=== PATIENT | female | born 1995 | race Caucasian/White ===

== ENCOUNTER 2023-05-02 10:23 | Emergency (ER) | payer OTHER, SELFPAY ==
[2023-05-02 10:46] VITALS: BP 120/80; PULSE 104; RESP 16; TEMP 36.6; O2SAT 99
--- NOTE | 2023-05-02 10:56 | ED.URI ---
HPI - URI/Sore Throat General Chief Complaint: Upper Respiratory Infection Stated Complaint: Congestion;Nausea Time Seen by Provider: 05/02/23 10:56 Source: patient and RN notes reviewed Mode of arrival: ambulatory Limitations: no limitations History of Present Illness HPI Narrative: 27 year female presenting for complaint of nasal congestion, sore throat, cough and vomiting for about 5 days. States the sore throat felt like swallowing glass but is improving. Continues to feel congested. Denies shortness of breath, wheezing, fevers or lethargy. 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 Taking Mucinex, Benadryl and Tylenol/ibuprofen. Tested negative for covid x2 since onset. MD elicited complaint: cough Related Data Home Medications Medication Instructions Recorded Confirmed No Home Medications 05/02/23 05/02/23 Allergies Allergy/AdvReac Type Severity Reaction Status Date / Time No Known Allergies Allergy Unverified 05/27/14 13:21 Review of Systems Review of Systems: CONSTITUTIONAL: Endorses malaise, Denies chills, sweats, fever EYES: Denies visual changes, redness, or discharge ENT: Reports rhinorrhea, congestion, sore throat CARDIOVASCULAR: Denies chest pain, palpitations, edema RESPIRATORY: Reports cough, post nasal drainage. Denies dyspnea GASTROINTESTINAL: Reports nausea, vomiting, Denies abdominal pain, diarrhea SKIN: Denies rash or itching MUSCULOSKELETAL: Endorses myalgia NEUROLOGIC: Denies headache PMF Past Medical History Medical History (Updated 05/02/23 @ 11:17 by Joann Krishnan, [employer]) No pertinent past medical history Exam Narrative: GENERAL: Ill-appearing, nontoxic no acute distress. HEAD: Normocephalic EYES: PERRLA, conjunctivae clear ENT: Mucous membranes moist. TMs pearly torres with dull light reflex bilaterally; no tragal tenderness. Oropharynx erythematous without lesions or exudate, tonsils 1+ no drooling, no hoarseness, no trismus, uvula midline. No tripod positioning, muffled voice, soft palate or pharyngeal wall bulging NECK: Supple. No lymphadenopathy CHEST: Clear to auscultation, breath sounds equal. No wheezing, rhonchi, rales, or stridor. No respiratory distress, speaks in full sentences. HEART: Regular rate and rhythm. No murmur heard. SKIN: Warm, dry, no rash. NEURO: Alert and oriented x3. PSYCH: Normal mood and affect Course Course Emergency Course: Patient is aware of diagnosis, understands and agrees to treatment plan. Anticipatory guidance given. Patient agrees to follow-up as directed and is aware of reasons to seek care at the emergency department. Portions of this record may have been created with voice recognition software Level of Care: Express Care Visit Vital Signs Vital signs: Vital Signs Temperature 98 F 05/02/23 10:46 Pulse Rate 104 H 05/02/23 10:46 Respiratory Rate 16 05/02/23 10:46 Blood Pressure 120/80 05/02/23 10:46 Pulse Oximetry 99 05/02/23 10:46 Temperature 98 F 05/02/23 10:46 Pulse Rate 104 H 05/02/23 10:46 Respiratory Rate 16 05/02/23 10:46 Blood Pressure 120/80 05/02/23 10:46 Pulse Oximetry 99 05/02/23 10:46 reviewed MDM - URI/Sore Throat MDM Narrative Medical decision making narrative: Negative covid Negative strep Discussed physical exam findings. Advised supportive measures and signs/symptoms to go to the ER. Pt is appropriate for outpt treatment and f/u. Differential Diagnosis Differential diagnosis: Likely upper respiratory infection, sinusitis and viral infection Lab Data Labs: Strep Screen Presumptive Negative *(Reference Range: Negative)* Discharge Plan Discharge Clinical Impression: Viral infection Patient Disposition: Home, Self-Care Condition: Stable Instructions: Viral Syndrome (ED) Additional Instructions: COVID negative Rapid strep swab was negative tod
== END 2023-05-02 11:28 | disposition home or self-care (01) ==
PROVIDERS: Emergency Provider Nurse Practitioner Family; PCP Registered Nurse
DX: B34.9 Viral infection, unspecified (principal); Z20.822 Contact with and (suspected) exposure to COVID-19
CPT/HCPCS: 87081; 87426; 87880; 99213; C9803; G0463

== ENCOUNTER 2024-11-25 07:29 | Outpatient (CLI) | payer OTHER, SELFPAY ==
--- NOTE | ~2024-11-25 | XR_ITS ---
AP and lateral views of the bilateral hips Clinical history: Pain Findings: No acute fracture or dislocation is seen. Osseous alignment is anatomic. Bilateral hip and SI joint spaces are preserved. Soft tissues are unremarkable. IUD in place. Impression: No significant abnormality is seen. Reviewed, dictated and finalized at [facility]. Impression: No significant abnormality is seen.
== END 2024-11-25 07:30 | disposition home or self-care (01) ==
LOC: MICIMG 07:34
PROVIDERS: PCP Physician Assistant; Visit Provider Physician Assistant
DX: M25.552 Pain in left hip (principal); M25.551 Pain in right hip
CPT/HCPCS: 73521

== ENCOUNTER 2024-12-24 07:02 | Outpatient (CLI) | payer OTHER, SELFPAY ==
--- NOTE | ~2024-12-24 | US_ITS ---
US soft tissue UE LT 12/24/2024 07:56 Indication: Bump left hand. Possible ganglion cyst. Procedure: High-resolution Limited ultrasound of the left hand/dorsal wrist Comparison: No prior studies for comparison. Findings: Normal heterogeneous soft tissues without focal solid or cystic mass. Normal vascularity. Impression: 1: No soft tissue mass identified. Reviewed, dictated and finalized at location B. Impression: 1: No soft tissue mass identified.
--- OUTSIDE RECORDS SUMMARY | 2024-12-24 07:10 | XMS_ITS | Clinical Summary ---
Author Organization [facility] Address [address] [place] [address] Care Team Providers Care Hide Selector Name Role Phone Unavailable Primary Care Provider Unavailabl e Source Comments [facility],non-owned Affiliates and Associated Physician Practices is amultiple site organization consisting of ambulatory clinics and hospital sitesin [place], [place], [place] and [place]. This disclosure is being madepursuant to the Care Everywhere program and may not contain all information available regarding this patient. Last updated [email or web address] Allergies No known active allergies Medications * Be aware that medications may not be up to date on this document. Alwaysverify current medications with the patient. No known medications Family History Medical History Relation Name Comments Hypertension Father Relation Name Status Comments Father Alive Mother Alive Social History Tobacco Use Types Packs/Day Years Used Date Smoking Tobacco: Never Smokeless Tobacco: Never Comments No Sex and Gender Information Value Date Recorded Sex Assigned at Not on file Legal Sex Female 2:05 PM CDT Gender Identity Not on file Sexual Orientation Not on file Last Filed Vital Signs Vital Sign Reading Time Taken Comments Blood Pressure 102/56 01/06/2018 2:11 PM CDT Pulse 68 01/06/2018 2:11 PM CDT Temperature 36.8 C (98.2 F) 01/06/2018 2:11 PM CDT Respiratory Rate 16 01/06/2018 2:11 PM CDT Oxygen Saturation 98% 01/06/2018 2:11 PM CDT Inhaled Oxygen Concentration - - Weight 58.5 kg (129 lb) 01/06/2018 2:11 PM CDT Height 172.7 cm (5' 8) 01/06/2018 2:11 PM CDT Body Mass Index 19.61 01/06/2018 2:11 PM CDT Plan of Treatment Health Maintenance Due Date Last Done Comments HIV SCREENING 2011 HEPATITIS C SCREENING 04/29/2014 DTAP/TDAP/TD VACCINES (1 - Tdap) 2015 HEPATITIS B VACCINE (1 of 3 - 19+ 3-dose series) 2015 COVID-19 VACCINE (1 - 2023-2 5 season) 2024 DEPRESSION SCREENING 07/14/2024 INFLUENZA VACCINE (Season Ended) 2025 ZOSTER VACCINE (1 of 2) 2046 HIB VACCINE Aged Out No longer eligi ble based on patient's age to complete this topic HPV VACCINE Aged Out No longer eligi ble based on patient's age to complete this topic MENINGOCOCCAL (Group B) VACC INE SHARED DECISION-MAKING Aged Out No longer eligibl e based on patient's age to complete this topic MENINGOCOCCAL GROUPS A/C/Y/W VACCINE Aged Out No longer eligible b ased on patient's age to complete this topic PNEUMOCOCCAL VACCINE Aged Out No long er eligible based on patient's age to complete this topic
--- OUTSIDE RECORDS SUMMARY | 2024-12-24 07:10 | XMS_ITS | Data Portability ---
Author Organization [employer] , [facility] Address [address] [place] [address] Assessment No assessment recorded. Plan of Treatment Reminders Order Date Submit Date Provider Last Modified By Organization Details Last Modified Time Details Appointments None recorded. Lab test, urine 2023 024 [email or web address] [facility], [address] [place], [address], 4 13:22:41 pap, LB 2023 024 [facility], [address] [place], [address], 4 17:34:02 unlisted lab - Pap reflex hold plus CT/GC/trich 2023 024 [facility], [address] [place], [address], 4 23:02:38 Referral pelvic floor therapy referral 2023 024 [email or web address] [facility], [address], [place], [address], 4 13:32:28 Procedures insertion, intrauterin e device (PROC) 2023 024 [email or web address] Not available 4 17:55:42 Surgeries None recorded. Imaging US, transvagina l 2024 025 [email or web address] Not available 5 18:51:54 US, pelvis, limited/fol low-up 2024 025 FAM Not available 5 06:30:29 US, pelvis, limited/fol low-up 2023 024 FAM Not available 4 17:53:59 Medication Orders Mirena 21 mcg/24 hr (up to 8 years) 52 mg intrauterin e device 2023 024 [id number], [address], [place], [place], [id number], 13:22:41 Patient TargetsNo targets recorded. Patient Instructions Encounter Date Encounter Id Patient Instructions Last Modified By Organization Details Last Modified Time 06/03/2024 [id number] A healthy lifestyle: care instructions [email or web address] Not available 06/03/2024 11:57:59 Following the [employer] Food Guide: Care Instructions [email or web address] Not available 06/03/2024 11:58:00 exercise program : getting started [email or web address] Not available 06/03/2024 11:58:00 contraception information [email or web address] Not available 06/03/2024 11:58:00 06/24/2024 [id number] intrauterine device (IUD) insertion: care instructions [email or web address] Not available 06/24/2024 13:22:41 Reason for Referral Pelvic Floor Therapy Referra l for Pain in female genitalia on intercourse Referring Physician: Sue Hsieh, [employer], Encounter Date: 06/03/2024 Results Created Date Observation Date Name Description Value Unit Range Abnormal Flag Note LastModifiedBy Organization Detail LastModifiedTime 06/03/2006/08/2024 THINP REP TIS PAP clinical information: normal None given Not Available [facility] [address] [place], [address], 06/08/2024 17:34:02 06/03/2006/08/2024 THINP REP TIS PAP LMP: normal None given Not Available [facility] [address] [place] [address], [address], 06/08/2024 17:34:02 06/03/20 24 06/08/2024 THINP REP TIS PAP prev. Pap: normal None given Not Available [address], [address], 06/08/2024 17:34:02 06/03/20 24 06/08/2024 THINP REP TIS PAP prev. BX: normal None given Not Available [address], [address], 06/08/2024 17:34:02 06/03/2006/08/2024 THINP REP TIS PAP source: normal Cervi x Not Available [address], [address], 06/08/2024 17:34:02 06/03/2006/08/2024 THINP REP TIS PAP statement of adequacy: normal Satis facto ry for evalu ation . Endoc ervic al/tr ansfo rmati on zone compo nent prese nt. Age and/o r menst rual statu s not provi ded Not Available [address], [address], 06/08/2024 17:34:02 06/03/20 24 06/08/2024 THINP REP TIS PAP interpretati on/result: normal Cytol ogy Resul ts: Negat funmi for intra epith elial lesio n or jose eduardo stevens . Not Available [address] [place], [address], 06/08/2024 17:34:02 06/03/2006/08/2024 THINP REP TIS PAP comment: normal This Pap test has been evalu ated with compu ter krystyna piter techn ology . Not Available [address], [address], 06/08/2024 17:34:02 06/03/20 24 06/08/2024 THINP REP TIS PAP cytotechnolo gist: normal KMS, CT( CP) CT Scree momo locat ion: [facility] [address] [place] [address] Not Available [facility] [address], [place], [address], 06/08/2024 17:34:02 06/03/20 24 06/08/2024 THINP REP TIS PAP comment EXPLA NATOR Y NOTE: The Pap is a scree momo test for cervi richar cance r. It is not a diagn ostic test and is subje ct to false negat funmi and false posit funmi resul ts. It is most relia ble when a satis facto ry sampl e, regul rodriguez obtai jayna, is submi tted with relev ant clini richar findi ngs and histo ry, and when the Pap resul t is evalu ated along with histo martin and curre nt clini richar infor matio n. Not Available [facility] [address], [place], [address], 06/08/2024 17:34:02 06/03/20 24 06/09/2024 CT/GC /TRIC H + HOLD trichomonas vaginalis TRICH neg negati ve normal Not Available [address], [address], 06/09/2024 23:02:38 06/03/20 24 06/09/2024 CT/GC /TRIC H + HOLD chlamydia trachomatis CT neg negati ve normal This repor t is inten ded for us in clini richar monit oring and manag ement of patie nts. It is not inten ded for use in medic al-le gal appli catio n. Not Available [facility] [address] [place], [address], 06/09/2024 23:02:38 06/03/20 24 06/09/2024 CT/GC /TRIC H + HOLD neisseria gonorrhoeae GC neg negati ve normal This repor t is inten ded for us in clini richar monit oring and manag ement of bridgett springer. It is not inten ded for use in medic al-le gal appli catio n. Not Available [facility] [address] [place], [address], 06/09/2024 23:02:38 06/24/20 24 06/24/2024 pregn evita test, urine HCG negati ve Not Available [facility] [address] [facility], [place], [address], 06/24/2024 12:35:33 06/24/20 24 06/24/2024 US, pelvi s, limit ed/fo llow- up No observ ation record ed. [email or web address] [address], [place], [address], 06/28/2024 13:14:16 08/12/19 25 08/10/2024 US, pelvi s, limit ed/fo llow- up No observ ation record ed. [email or web address] [address], [place], [address], 08/12/2024 10:08:51 Result Notes None recorded. Procedures Surgical History Date Name Laterality Status Provider Name and Address Organization Details Recorded Time 06/24/20 24 [facility]ion [facility] [place], [address], [employer] [facility] 06/24/2024 13:22:20 06/24/20 24 insertion of intrauterine contraceptive device completed Ashanti Rocha [facility] [employer] [facility] IV 06/24/2024 12:55:05 06/03/20 24 Date of Last Pap Smear completed MARISELA JACKSON [address] [place], [address], [employer] [facility] IV 06/03/2024 11:56:40 Imaging Results None recorded. Procedure Notes None recorded. Medical Equipment None Reported. Allergies No known drug allergies Medications Name Sig Start Date Stop Date Status Note LastModified by Organization Details LastModified Time Mirena 21 mcg/24 hr (up to 8 years) 52 mg intrauter ine device Take by intraute rine route. 2023 active Document procedur e details in the PE - Procedur e SectionD ocument Lot # Exp Date and click Administ ered in this A/P order Not Available Not Available Not Available omeprazol e 20 mg capsule,d elayed release 06/03 completed Not Available Not Available Not Available Vitals Date Recorded Body height Body mass index (BMI) Body weight Systolic blood pressure Diastolic blood pressure Provider Name and Address Organization Details Last Updated DateTime 08/10/2024 172.72 cm 25.2 kg/m2 57888.33 g 106 mm[Hg] 70 mm[Hg] Nyasia Vaz [employer] [facility] 5 09:52:20 Date Recorded Body weight Body mass index (BMI) Body height Systolic blood pressure Diastolic blood pressure Provider Name and Address Organization Details Last Updated DateTime 06/03/2024 66114.32 g 26.2 kg/m2 172.72 cm 118 mm[Hg] 66 mm[Hg] Karin Stone [employer] [facility] 4 10:45:18 Date Recorded Body height Body mass index (BMI) Body weight Body temperature Systolic blood pressure Diastolic blood pressure Provider Name and Address Organization Details Last Updated DateTime 172.72 cm 26 kg/m2 53223.3 g 96.1 [degF] 118 mm[Hg] 72 mm[Hg] Ashanti Rocha [employer] [facility] 4 12:43:31 Social History Question Answer Notes LastModified by Organizat ion Details LastModified Time Tobacco Smoking Status Never Smoker Karin Stone [facility], [employer] [facility] 06/03/2024 10:42:07 If You Are , What Was Your Level Of Alcohol Consumption Prior To ? None Information not available 06/03/2024 How Many Years Have You Consumed Alcohol? 7 [email or web address] Information not available 06/03/2024 Are You Blind Or Do You Have Difficulty Seeing? No [email or web address] Information not available 06/03/2024 Are You Deaf Or Do You Have Serious Difficulty Hearing? No [email or web address] Information not available 06/03/2024 What Type Of Diet Are You Following? REGULAR [email or web address] Information not available 06/03/2024 How Many Children Do You Have? 0 [email or web address] Information not available 06/03/2024 Are There Any Occupational Health Risks Where You Work? Work In [employer] [email or web address] Information not available 06/03/2024 What Is Your Relationship Status? Single [email or web address] Information not available 06/03/2024 Are You Sexually Active? Yes [email or web address] Information not available 06/03/2024 Sex: Unknown Functional Status Question Answer Note LastModified by Organizat ion Details LastModified Time Do you use any illicit or recreational drugs? No Information not available 06/03/2024 What is your level of alcohol consumption? Occasional [email or web address] Information not available 06/03/2024 Are you currently employed? Yes [email or web address] Information not available 06/03/2024 What is your exercise level? Occasional Information not available 06/03/2024 Mental Status None recorded. Family History Relationship Description Onset Age of this Age Resolved Age Notes LastModified by Organization Details LastModified Time Maternal Grandmother Hypertensive disorder Not available 2023 10:42:06 Maternal Grandmother Diabetes mellitus [email or web address] Not available 2023 10:42:06 Medical History Condition Response Other Cancer N High Blood Pressure N Colon Cancer N Cytomegalovirus N Hyperthyroidism N Herpes (HSV) N Breast Cancer N Blood Transfusion N MRSA N Lung Cancer N Hypothyroidism N Depression N Incontinence N Panic Attacks N Neurological Disorder N Deep Vein Thrombosis N Anxiety Disorder N Autoimmune disease N Arthritis N Tuberculosis/Positive PPD N Shingles N Polycystic Ovarian Syndrome N Infertility N Cervical Cancer N Hematuria N Chlamydia N Varicosities N Stroke N Crohn's Disease N Seasonal allergies N Alzheimer's/Dementia N COPD/Emphysema N HPV/Genital Warts N Endometriosis N IBS (Irritable Bowel Syndrome) N History of Abnormal Pap N High Cholesterol N Liver Disease N Kidney Infection N Fibromyalgia N Ulcer N Kidney Disease N HIV N Gallbladder disease N Sickle Cell Disease/Trait N Von Willebrand disease N ADD/ADHD N Eating Disorder N Diabetes Mellitus (non-insulin dependent ) N Anemia N Ovarian Problems N Multiple Sclerosis N Gonorrhea N Frequent Urinary Tract infections N Osteopenia N Headaches/migraines N GERD (reflux) N Ovarian Cancer N Diabetes (insulin dependent) N Seizures/Epilepsy N Breast Problems N Fibroids N Asthma N Heart Attack N Lupus N Endometrial Cancer N Rubella N Blood Clotting Disorder N Bipolar Disorder N Diabetes Mellitus (during ) N Ulcerative Colitis N Hepatitis N Heart Disease N Pulmonary Embolism N RPR N Chicken Pox N Osteoporosis N Gynecological History Statement/Question Response Date of Last Colonoscopy Flow Moderate Frequency of Cycle (Q days) 30 Date of LMP 07/22/2024 Most Recent Bone Density Date of Last Pap Smear 06/03/2024 Duration of Flow (days) 6 Most Recent Mammogram Current Control Method None Age at Menarche 15 Obstetrics History GPAL:G 0 P 0 0 0 0 Past Encounters Encounter ID Performer Location Encounter Start Date Encounter Closed Date Diagnosis/Indication Diagnosis SNOMED-CT Code Diagnosis ICD10 Code Diagnosis Note [id number] [facility] [address] [place] [address] 06/03/2024 10:36:23 06/03/2024 12:46:39 Gynecologic examination 61831850 Z01.419 Patient is new to our Practice. She presents today for a gynecologi richar Annual Exam. Patients Past Medical History and Family History reviewed. Annual Exam:She reports having painful intercours e. Reports adequate foreplay. States they have introduced lubricatio n. Reports stabbing/s cratching pain.Her menses are regular, occurring every 1 month(s). Menses lasts for 6 days. Reports they are not heavy or painful. Denies spotting in between.Pt is currently using nothing for contracept ion. She would like Mirena IUD, RTC for placement. Pap History:Kota cornelius is due for a pap smear. Breast History:Kota cornelius denies breast symptoms. Education on Breast Self Awareness given. Patient is regularly seen by PCP for preventati ve care: Yes Screening for malignant neoplasm of cervix 271325225 Z12.4 Contracept ion education 917276870 Z30.09 Contracept funmi counseling : Discussed options including OCPs, NuvaRing, Nexplanon, hormonal and copper IUDs. Discussed risks, efficacy, noncontrac eptive benefits, and side effects of each option, including risk of VTE with hormonal contracept ion and uterine perforatio n, expulsion, infection with IUD. Pain in fe male genitalia on intercourse 63663973 N94.10 [id number] NUNO JACKSON-[facility] [address] [address] 06/24/2024 11:53:52 06/24/2024 14:24:48 Insertion of intrauterine contraceptive device 10339796 Z30.430 Pt is here for an IUD insertion -- After additional ly reviewing Mirena literature , consent was signed and witnessed. -- Risks of abnormal bleeding, uterine perforatio n (07/999), infection, interrupti on of , expulsion, failure, and ectopic in rare cases were reviewed and all questions were answered.- - Reviewed 99% efficacy as contracept funmi. Discussed potential for AUB/spotti ng and cramping for first few days to months. Education on likely lightening of cycles over time with approx 1/3 of pts developing amenorrhea .-- IUD placed without incident. Pt tolerated procedure well.-- Pt educated on OTC NSAID therapy for 24-48 hours PRN following procedure. Bleeding profile reviewed.- - IUD placed under US; IUD within midline of EMC.-- RTO for annual or as needed IUD check 499722319 Z30. 002 [id number] MATEO JOHNSON NP [address] [place] [address] 08/10/2024 09:40:57 08/10/2024 16:13:08 Intrauterine contraceptive device in situ 389153352 Z30.431 29 y.o. presenting for IUD follow up visit.- IUD in place on sono, no concerns- Reviewed efficacy, common side effects including spotting for first several months especially , rare hormonal sx, amenorrhea in approx 1/3 of patients. All questions answered.- Aware that contracept funmi benefits are FDA approved x5 years, however growing evidence that likely use can be continued to 7 yrs, will update pt if FDA approval changes- Reviewed need for barrier method for STI prevention - Pap at age 22- RTO as needed Health Concerns Section Related Observation LastModified by Organization Detai ls LastModified Time None Recorded Concern Status LastModified by Organization Details LastModified Time None Recorded Advance Directives Directive None Recorded Payers Insurance Date Sequence Insurance Name Policy Number Policy Nick Covered Member ID Nick Member ID Guarantor Name 10/01/2024 1 [employer] - ALLIED BENEFITS - OPEN ACCESS [id number] Yael Osman [id number] Yael Osman Notes Date Note Type Note Provider Name and Address Organization Details Recorded Time 06/03/2024 text/html Annual GYNReport ed bypatient.Menstrua l cycle:Normal menses Sexual complaints:Pain during intercourse Yael is here for her annual. LMP: 05/24/2024. She is not currently taking control. She states she has been having pelvic pain during intercourse for on and off for about a year now. She describe her pain at more of stabbing, scratching pain. She states she has no bleeding. MIRIAM JACKSON [address] [place], [address], [employer] [facility] 06/03/2024 11:58:27 06/24/2024 text/html Yael is here f or an IUD insertion. Pt has not had unprotected sex in the last two weeks. Her upt in office today is negative. Pt has no additional concerns. MIRIAM JACKSON [address] [facility], [place], [address], [employer] [facility] IV 06/24/2024 13:27:44 08/10/2024 text/html Patient presents today for an IUD check. Patient had Mirena inserted on 06/24/24.LMP 07/22/23Patient reports feeling poking sensation in the middle of her pelvis, and also mild cramping. Ibuprofen and Tylenol doesn't help with the pain. Spotting occasionally. MATEO JOHNSON NP [address] [place], [address], [employer] [facility] IV 08/10/2024 16:09:11 OBGyn Episode No OBEpisode recorded.
== END 2024-12-24 07:03 | disposition home or self-care (01) ==
PROVIDERS: PCP Physician Assistant; Visit Provider Physician Assistant
DX: M67.432 Ganglion, left wrist (principal)
CPT/HCPCS: 76882

== ENCOUNTER 2025-06-08 16:28 | Emergency (ER) | payer OTHER, SELFPAY ==
[2025-06-08] VITALS (9 sets, daily range): BP systolic 128–147; BP diastolic 79–90; PULSE 101–118; RESP 18–26; TEMP 36.4; O2SAT 100
--- NOTE | ~2025-06-08 | XR_ITS ---
EXAMINATION: XR chest 2V, 06/08/2025 16:43 LIFESTYLE CONSULTANT HISTORY: chest pain COMPARISON: No comparisons available. Technique: 2 views obtained. Findings: The lungs are clear, no effusion. No pneumothorax. Heart is normal size. Mediastinal and hilar contours are within normal limits. Bony thorax no acute abnormality. Impression: No acute cardiopulmonary abnormality. Reviewed, dictated and finalized at location P. STYLE CONSULTANT Impression: No acute cardiopulmonary abnormality.
--- NOTE | 2025-06-08 16:29 | ECG_ITS ---
Test Date: 2025-06-08 16:38:59 Measurements Intervals [place] Rate: 105 P: 59 RI: 118 QRS: 66 QRSD: 82 T: 12 QT: 325 QTc: 431 Interpretive Statements SINUS TACHYCARDIA WITH SHORT RI INTERVAL POSSIBLE LEFT ATRIAL ENLARGEMENT [-0.1mV P-WAVE IN V1/V2] ABNORMAL ECG No previous ECG available for comparison Electronically Signed On 06-08-2025 17:42:43 [facility]ILDHO[facility] by Harvinder Lance M.D.
--- OUTSIDE RECORDS SUMMARY | 2025-06-08 16:31 | XMS_ITS | Encounter Summary ---
Author Organization [facility] Address [facility] [place] [address] Care Team Providers Care Mental Measurements Teacher Name Role Phone Yanna Aquino Primary Care Provider [phone] Encounter Details Date Type Department Care Team (Late st Contact Info) Description 07/12/[address] [facility] [address] [place] [address] Rosaura Nuñez, [facility]- Three [facility]. [address] [place] [address] Test Results Social History Tobacco Use Types Packs/Day Years Used Date Smoking Tobacco: Never Smokeless Tobacco: Never Alcohol Use Standard Drinks/Week Comments Yes 0 (1 standard drink = 0.6 oz pur e alcohol) maybe 3 drinks a month AUDIT-C Answer Date Recorded Frequency of Alcohol Consumption 2-4 times a fri12/29/2018 Average Number of Drinks 1 or 2 019 Frequency of Binge Drinking Never 12/12 PHQ-2 Answer Date Recorded Patient Health Questionnaire-2 Score 2 07/24/2023 Comments No Sex and Gender Information Value Date Recorded Sex Assigned at Not on file Legal Sex Female 7:10 PM CDT Gender Identity Female 07/30/2021 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 Sexual Orientation Straight 07/30/2021 3: 18 PM CONFIGURATION RELEASE MANAGER 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
--- OUTSIDE RECORDS SUMMARY | 2025-06-08 16:31 | XMS_ITS | Clinical Summary ---
Author Organization [facility] Address [address] [place] [address] Care Team Providers Care Continuity Writer Name Role Phone Yanna Aquino Primary Care Provider Allergies No known active allergies Medications No known medications Active Problems Problem Noted Date Diagnosed Date Other chest pain 09/12/2023 Anxiety and depression 09/08/2023 Current episode of major dep ressive disorder without prior episode 11/10/2020 Dysmenorrhea 08/31/2015 Resolved Problems Problem Noted Date Diagnosed Date Resolved Date Encounter for preventive health examination 08/02/2014 03/24/2020 Immunizations Immunization Administration Dates Next Due Dtap (Acel-Immune) 02/17/2002,06/14/1999 Dtp (Generic) 01/04/1997,1996,1996 Hepatitis B Pediatric 05/31/1997,1996,04/14 Hepatitis B(Engerix B Adult) 02/25/2023 Hib (Generic) 01/04/1997,1996,1996 Influenza Adult (Generic) 05/15/2022,05/22/2021 MMR (MMRII) 02/17/2002,06/14/1999 MODERNA COVID-19 (12+) MRNA, LNP-S, PF, 100 MCG/ 0.5 ML DOSE 04/03/2021,03/06/2021 Polio IPV (Ipol) 02/17/2002 Polio Opv (Generic) 01/04/1997,1996,1995 Varicella (Varivax) 05/31/1997 Family History Medical History Relation Comments Sleep Apnea Father Diabetes Maternal Grandmother Hypertension Maternal Grandmother Relation Status Comments Brother Alive Father Alive Maternal Grandmother Mother Alive Sister Alive Social History Tobacco Use Types Packs/Day Years Used Date Smoking Tobacco: Never Smokeless Tobacco: Never Tobacco Cessation:Counseling Given: Not Answered Alcohol Use Standard Drinks/Week Comments Yes 0 [...] CDT Gender Identity Female 07/30/2021 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 Sexual Orientation Straight 07/30/2021 3: 18 PM AIRPORT UTILITY WORKER 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 Not on file Not on file Last Filed Vital Signs Vital Sign Reading Time Taken Comments Blood Pressure 124/82 10/07/2023 12:03 PM CDT Pulse 88 10/07/2023 12:03 PM CDT Temperature 36.7 C (98.1 F) 07/24/2023 8:14 AM AIRPORT UTILITY WORKER Respiratory Rate 16 07/24/2023 8:14 AM AIRPORT UTILITY WORKER Oxygen Saturation 99% 10/07/2023 12:03 PM CDT Inhaled Oxygen Concentration - - Weight 74.4 kg (164 lb) 10/07/2023 12:03 PM CDT Height 172.7 cm (5' 8) 10/07/2023 12:03 PM CDT Body Mass Index 24.94 10/07/2023 12:03 PM CDT Plan of Treatment Health Maintenance Due Date Last Done Comments Cervical Cancer Screening Pap Smear (Age 21 to 29) Every 3 Years 1996 Cervical Cancer Screening 1996 DTaP, Tdap and Td Vaccines (6 - Tdap) 2007 02/17/2002, 06/14/1999, 01/04/1997, Additional history exists Hepatitis C 2014 Annual Physical 11/15/2022 11/15/2021, 10/26/2020 HPV Vaccines (1 - 3-dose SCDM series) 2023 PHQ-2 (Physician [place]) 07/14/2024 07/24/2023 COVID-19 Vaccine ( season) 2025 04/03/2021, 03/06/2021 Influenza Adult (#1) 2025 05/15/2022, 05/22/20 Hepatitis B Vaccines Completed 02/25/2023, 05/31/1997, 1996, Additional history exists Hepatitis A Vaccines Aged Out No long er eligible based on patient's age to complete this topic Meningococcal B Vaccine Aged Out No l onger eligible based on patient's age to complete this topic Meningococcal Vaccine Aged Out No thom santos eligible based on patient's age to complete this topic Pneumococcal Vaccine: Pediatrics (0 to 5 Years) and At-Risk Patients (6 to 49 Years) Aged Out No longer eligible based on patient's age to complete this topic RSV Immunizations Under 20 Months Aged Out No longer eligible based on patient's age to complete this topic Insurance [place] [facility] Care Teams Continuity Writer Relationship Specialty Start Date End Date Yanna Aquino APNP [address] [place], [place] [id number] PCP - General NURSE PRACTITIONER 11/27/18
--- OUTSIDE RECORDS SUMMARY | 2025-06-08 16:31 | XMS_ITS | Clinical Summary ---
Author Organization [facility] Address [address] [facility] [place] [address] Care Team Providers Care Rehab Tech Name Role Phone Unavailable Primary Care Provider Unavailabl e Source Comments [facility],non-owned Affiliates and Associated Physician Practices is amultiple site organization consisting of ambulatory clinics and hospital sitesin [place], [place], [place] and [place]. This disclosure is being madepursuant to the Care Everywhere program and may not contain all information available regarding this patient. Last updated [employer] Allergies No known active allergies Medications * [...] of 3 - 19+ 3-dose series) 2015 HPV VACCINE (1 - 3-dose SCDM series) 2023 DEPRESSION SCREENING 07/14/2024 COVID-19 VACCINE (1 - 2024-2 6 season) 2025 INFLUENZA VACCINE (#1) 2025 ZOSTER VACCINE (1 of 2) 2046 [...]
--- OUTSIDE RECORDS SUMMARY | 2025-06-08 16:31 | XMS_ITS | Encounter Summary ---
Author Organization [facility] Address [facility] [place] [address] Care Team Providers Care Strategic Insights Lead Name Role Phone Yanna Aquino Primary Care Provider [phone] Encounter Details Date Type Department Care Team (Late st Contact Info) Description 10/27/2023 [employer] Message Enc [place] [facility], [facility] [address] [place] [address] Rosaura Nuñez, [facility]- Three [facility]. 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
[2025-06-08 16:46] LABS: Hematocrit 43.6 % (37.0-47.0); Hemoglobin 14.5 g/dL (12.0-15.0); Immature Granulocyte Percent A 0.2 % (0-0.5); Lymphocytes Absolute Auto 2.37 K/mm3 (0.9-3.2); Mean Corpuscular HGB Conc 33.3 g/dl (32-36); Mean Corpuscular Hemoglobin 28.9 pg (26-34); Mean Corpuscular Volume 87.0 fl (80-100); Nucleated Red Blood Cells Absolute Auto 0.000 K/mm3 (0.0-0.012); Nucleated Red Blood Cells Perc 0.0 % (0.0-0.2); Platelet Count Result 292 k/mm3 (150-375); Red Blood Count 5.01 M/mm3 (4.2-5.4); White Blood Count 8.9 K/mm3 (4.5-10.0)
[2025-06-08 16:58] LABS: INR 1.0; Prothrombin Time 13.5 Seconds (11.1-14.7)
[2025-06-08 16:59] LABS: Partial Thromboplastin Time 34.8 Seconds (22.3-36.8)
[2025-06-08 17:02] LABS: Alanine Aminotransferase 19 U/L (6-35); Albumin Level 4.5 g/dL (3.5-5.1); Alkaline Phosphatase 91 U/L (38-126); Anion Gap 6 mmol/L (4-12); Aspartate Amino Transferase 24 U/L (14-36); Bilirubin,Total 0.4 mg/dL (0.2-1.3); Blood Urea Nitrogen 9 mg/dL (7-17); Calcium 9.6 mg/dL (8.4-10.2); Carbon Dioxide 25 mmol/L (22-30); Chloride 106 mmol/L (98-107); Estimated CRCL calculation 96 ml/min; Estimated Glomerular Filt Rate > 60; Glucose 97 mg/dL (65-110); Lipase 40 U/L (23-300); Potassium 3.9 mmol/L (3.4-5.0); Sodium 137 mmol/L (137-145); Total Protein 7.7 g/dL (6.3-8.2)
[2025-06-08 17:13] LABS: Troponin I < 0.012 ng/mL (0.000-0.034)
--- NOTE | 2025-06-08 17:47 | ED_ITS ---
HPI - Chest Pain General Chief Complaint: Chest Pain Stated Complaint: chest pain Time Seen by Provider: 06/08/25 16:33 History of Present Illness HPI narrative: Patient with history of depression and migraines who just started amitriptyline presenting here with chest discomfort, noticed her blood pressure was high at work and she says she feels out of sorts. She has had workup in the past with analytical research program manager up negative, has had these symptoms on and off for a while. No new stressors Related Data Home Medications ?Medication ?Instructions ?Recorded ?Confirmed ?Last Taken ?Type No Home Medications 05/02/23 05/02/23 U nknown History Allergies Allergy/AdvReac Type Severity Reaction Status Date / Time No Known Allergies Allergy Verified 06/08/25 16:46 Review of Systems 2 Review of Systems: All systems reviewed & are unremarkable except as noted in HPI and below PMFSH Past Medical History Medical History (Updated 06/08/25 @ 17:43 by Kandice Wilson MD) No pertinent past medical history Exam 2 Narrative: EXAMINATION OF ORGAN SYSTEMS/BODY AREAS: Constitutional: Vital signs per nursing GENERAL: Appears slightly anxious HEAD: Normal with no signs of head trauma. EYES: EOMI, conjunctiva normal ENT: Hearing grossly intact LUNGS: Nonlabored breathing. HEART: Slightly tachycardic ABD: [Soft], [nontender to palpation] EXT: Normal range of motion SKIN: [No rashes or lesions.] NEURO: [Alert and oriented x 3. No gross focal sensory or strength deficits.] PSYCH: Slightly anxious affect Course Vital Signs Vital signs: Vital Signs Temperature 97.6 F 06/08/25 16:41 Pulse Rate 114 H 06/08/25 16:41 Respiratory Rate 22 H 06/08/25 16:41 Blood Pressure 147/90 H 06/08/25 16:41 Pulse Oximetry 100 06/08/25 16:41 Temperature 97.6 F 06/08/25 16:41 Pulse Rate 114 H 06/08/25 16:41 Respiratory Rate 22 H 06/08/25 16:41 Blood Pressure 147/90 H 06/08/25 16:41 Pulse Oximetry 100 06/08/25 16:45 Oxygen Delivery Room Air 06/08/25 16:45 MDM - Chest Pain MDM Narrative Medical decision making narrative: Patient with history of depression and migraines who just started amitriptyline presenting here with chest discomfort, noticed her blood pressure was high at work and she says she feels out of sorts. On exam patient is slightly tachycardic, slightly hyperventilating, appears slightly anxious. I will obtain EKG and chest xray to rule out arrhythmia/ischemia, pneumothorax, or other cause of chest discomfort/shortness of breath. Patient also requested lab work which seems reasonable so I will order it. Chest x-ray on my independent interpretation does not show any acute abnormality, no pneumothorax or consolidation. EKG - 12-Lead: Performed at 1638. Interpreted by me. Sinus tachycardia. Rate 105. [Normal] axis. WA-interval 118. QRS duration 82. QTc 431. [No ST segment elevation or depression]. [T-wave normal]. Labs including troponin and D-dimer negative. On reevaluation patient is feeling slightly better, resting comfortably, vital signs now stable. Telemetry on my independent interpretation showing normal sinus rate and rhythm 88. Repeat blood pressure now 128 over 88. I do feel patient is stable for discharge home at this time with followup to their doctor, and return here if symptoms return or worsen. Agreeable to outpatient management. Lab Data 06/08/25 16:42 06/08/25 16:42 Labs: Lab Results 06/08/25 Range/Units 16:42 WBC 8.9 (4.5-10.0) K/mm3 RBC 5.01 (4.2-5.4) M/mm3 Hgb 14.5 (12.0-15.0) g/dL Hct 43.6 (37.0-47.0) % MCV 87.0 (80-100) fl MCH 28.9 (26-34) pg MCHC 33.3 (32-36) g/dl RDW 12.2 (11.5-14.5) % Plt Count 292 (150-375) k/mm3 MPV 9.4 (7.4-10.4) fl Immature Gran % (Auto) 0.2 (0-0.5) % Neut % (Auto) 59.7 (45.5-73.1) % Lymph % (Auto) 26.7 (18.3-44.2) % [place] % (Auto) 8.7 H (2.6-8.5) % Eos % (Auto) 4.0 (0-4.4) % Baso % (Auto) 0.7 (0.2-1.2) % Lymph # (Auto) 2.37 (0.9-3.2) K/mm3 [place] # (Auto) 0.8 H (0.1-0.6) K/mm3 Eos # (Auto) 0.4 H (0-0.3) K/mm3 Baso # (Auto) 0.1 (0.0-0.1) K/mm3 Abs Immat Gran (auto) 0.02 (0.00-0.031) K/mm3 Absolute Neuts (auto) 5.3 (1.3-6.7) K/mm3 Absolute Nucleated RBC 0.000 (0.0-0.012) K/mm3 Nucleated RBC % 0.0 (0.0-0.2) % PT 13.5 (11.1-14.7) Seconds INR 1.0 APTT 34.8 (22.3-36.8) Seconds D-Dimer < 0.27 (<0.48) ug/mL Sodium 137 (137-145) mmol/L Potassium 3.9 (3.4-5.0) mmol/L Chloride 106 (98-107) mmol/L Carbon Dioxide 25 (22-30) mmol/L Anion Gap 6 (4-12) mmol/L BUN 9 (7-17) mg/dL Creatinine 0.88 (0.7-1.0) mg/dL Estim Creat Clear Calc 96 ml/min Estimated GFR > 60 (59 - ) Glucose 97 (65-110) mg/dL Calcium 9.6 (8.4-10.2) mg/dL Total Bilirubin 0.4 (0.2-1.3) mg/dL AST 24 (14-36) U/L ALT 19 (6-35) U/L Alkaline Phosphatase 91 (38-126) U/L Troponin I < 0.012 (0.000-0.034) ng/mL Total Protein 7.7 (6.3-8.2) g/dL Albumin 4.5 (3.5-5.1) g/dL Lipase 40 (23-300) U/L Discharge Plan Discharge Clinical Impression: Atypical chest pain Patient Disposition: Home Condition: Stable Instructions: Chest Pain (ED) Additional Instructions: Your labs and x-ray today thankfully are normal today. You can return to the emergency room for any further issues. Please follow-up with your primary care doctor and/or analytical research program manager. Patient Language: Sami Prescriptions: No Action No Home Medications Follow-up/Referrals: Paddy,USHA Husain [Primary Care Provider, Unknown]
== END 2025-06-08 18:02 | disposition home or self-care (01) ==
PROVIDERS: Emergency Provider Emergency Medicine; PCP Physician Assistant
DX: R07.89 Other chest pain (principal); F32.A Depression, unspecified; R00.0 Tachycardia, unspecified; R94.31 Abnormal electrocardiogram [ECG] [EKG]
CPT/HCPCS: 36415; 71046; 80053; 83690; 84484; 85025; 85380; 85610; 85730; 93005; 99284